=== PATIENT | female | born 2000 | race Caucasian/White ===

== ENCOUNTER 2021-04-03 17:24 | Emergency (ER) | payer MEDICAID ==
[~2021-04-03] VITALS: Ht 157.5 cm; Wt 52.2 kg
[2021-04-03 17:30] VITALS: BP_SYST 113
--- NOTE | 2021-04-03 17:30 | NUR ---
Pt to remain in the ER lobby until ER bed becomes available.
--- NOTE | 2021-04-03 17:55 | NUR ---
Pt to bed 6 for evaluation. Report given to BETITO Lin who will assume care.
--- NOTE | 2021-04-03 18:05 | NUR ---
Pt. came in byself with c/o rectal abcess, on assessment appears to be hemorrhoids, pt. is and experiencing some constipation
--- NOTE | 2021-04-03 18:10 | NUR ---
ER at bedside examining patient.
[2021-04-03] MEDS ORDERED: HYDR28.316 RC (18:27)
--- NOTE | 2021-04-03 19:02 | NUR ---
verbal discharge instructions given, pt. left prior to signing paperwork
--- NOTE | 2021-04-03 19:03 | NUR ---
Patient given verbal discharge instructions and verbalizes understanding. ER Dr. Chou discussed with patient the results and treatment provided. Patient in stable condition. Rx of hydrocortisone cream sent to pharmacy. Patient educated on pain management and to follow up with PMD. Pain Scale 0/ when not sitting on bottom. Opportunity for questions provided and answered. Pt. left without signing discharge papers.
== END 2021-04-03 19:03 | disposition home or self-care (01) ==
LOC: SED 17:24
DX: O26.892 Other specified pregnancy related conditions, second trimester (principal); K64.9 Unspecified hemorrhoids; Z3A.23 23 weeks gestation of pregnancy
CPT/HCPCS: 99282